=== PATIENT | male | born 1960 | race Two or more races ===

== ENCOUNTER 2019-12-14 08:48 | Outpatient (CLI) | payer OTHER | END 2019-12-14 08:50 | disposition home or self-care (01) | LOC: TOM 08:48 | PROVIDERS: ATTEND Internal Medicine Hematology & Oncology | DX: D50.0 Iron deficiency anemia secondary to blood loss (chronic) (principal); R19.4 Change in bowel habit; R10.84 Generalized abdominal pain ==

== ENCOUNTER 2023-02-27 08:29 | Outpatient (CLI) | payer OTHER | END 2023-02-27 08:35 | disposition home or self-care (01) | LOC: RX STUDY 08:29 | DX: K63.89 Other specified diseases of intestine (principal) ==